=== PATIENT | male | born 1975 | race Caucasian/White ===

== ENCOUNTER 2017-10-08 16:01 | Inpatient (IN) | payer MEDICAID, OTHER ==
[~2017-10-08] VITALS: Ht 167.6 cm; Wt 96.3 kg
[~2017-10-08 16:01] MED LIST: AMLO10TA2 PO; AMOX1TAB61 PO; CARV25TA12 PO; CLON0.1T PO; FURO20TA3 PO; HYDR100T25 PO; ISOS60TA PO; LISI40TA PO; OXYC-302 PO; PANT40TA3 PO; POTA20TA91 PO; SIMV40TA3 PO; SPIR25TA3 PO; SUCR1TAB33 PO; ZOLP-413 PO
[2017-10-08] MEDS ORDERED: SODIUM CHLORIDE FLUSH 10ML SYR IVF ONE (16:30)
[2017-10-08 16:50] LABS: BASOPHILS # (AUTO) 0.04 x10^3/uL (0-0.1); BASOPHILS % (AUTO) 1 % (0-1); EOSINOPHILS # (AUTO) 0.12 x10^3/uL (0-0.4); EOSINOPHILS % (AUTO) 1 % (1-7); LYMPHOCYTES # (AUTO) 1.47 x10^3/uL (1-3.4); LYMPHOCYTES % (AUTO) 15 % (22-44); MD NO; MEAN CORPUSCULAR HEMOGLOBIN 26.2 pg (27.5-34.5); MEAN CORPUSCULAR HGB CONC 32.3 g/dL (33.2-36.2); MEAN CORPUSCULAR VOLUME 81.3 fL (81-97); MONOCYTES # (AUTO) 0.58 x10^3/uL (0.2-0.8); MONOCYTES % (AUTO) 6 % (2-9); NEUTROPHILS % (AUTO) 77 % (42-75); PLATELET COUNT 232 x10^3/uL (130-400); RED BLOOD COUNT 5.49 x10^6/uL (4.38-5.82); RED CELL DISTRIBUTION WIDTH 15.3 % (9.4-14.8)
[2017-10-08] MEDS ORDERED: HYDR25TA6 PO (16:53)
[2017-10-08 16:59] LABS: ANION GAP 7 mmol/L (5-15); CALCIUM 8.9 mg/dL (8.5-10.1); CHLORIDE 106 mmol/L (98-107)
[2017-10-08 17:01] LABS: INTERNATIONAL NORMALIZED RATIO 1.14 (0.93-1.1); PROTHROMBIN TIME 11.8 Seconds (9.6-11.5)
[2017-10-08 17:04] LABS: ALANINE AMINOTRANSFERASE 27 U/L (12-78); ALKALINE PHOSPHATASE 65 U/L (45-117); BILIRUBIN,TOTAL 0.9 mg/dL (0.2-1.0); CREATININE 1.45 mg/dL (0.7-1.3); TOTAL PROTEIN 7.8 g/dL (6.4-8.2); TROPONIN I 0.027 ng/mL (0.000-0.045)
[2017-10-08] MEDS ORDERED: OMNIPAQUE 350 MG/ML, 100ML BOTTLE ONE (17:41)
[2017-10-08] MEDS ORDERED: SODIUM CHLORIDE FLUSH 10ML SYR IVF PRN (18:30)
[2017-10-08] MEDS ORDERED: ACETAMINOPHEN 650 MG/20.3 ML UDC PO PRN (20:00)
[2017-10-08] MEDS ORDERED: DOCUSATE 100 MG CAPSULE PO PRN (20:00)
[2017-10-08] MEDS ORDERED: POLYETHYLENE GLYCOL 17 GM PACKET PO PRN (20:00)
[2017-10-08] MEDS ORDERED: ONDANSETRON 4 MG TABLET PO PRN (20:00)
[2017-10-08] MEDS ORDERED: INSTRUCTION SEE COMMENTS XX ONE (20:00)
[2017-10-08] MEDS ORDERED: OXYcodone/APAP 5/325MG TABLET PO PRN (20:00)
[2017-10-08] MEDS ORDERED: PROMETHAZINE 25 MG/ML, 1ML IM PRN (20:00)
[2017-10-08] MEDS ORDERED: morphine SULFATE 10 MG/ML, 1ML IVPush PRN (20:00)
[2017-10-08] MEDS ORDERED: ONDANSETRON 2MG/ML, 2ML IVPush PRN (20:00)
[2017-10-08] MEDS ORDERED: SENNA/DOCUSATE TABLET PO PRN (20:00)
[2017-10-08 20:45] LABS: HEMOGLOBIN A1C 5.4 % (4.2-6.3)
[2017-10-08 20:54] VITALS: BP 150/87
[2017-10-08 20:57] LABS: FREE T4 (FREE THYROXINE) 1.16 ng/dL (0.76-1.46); THYROID STIMULATING HORMONE 0.721 mIU/L (0.358-3.740)
[2017-10-08] MEDS ORDERED: POTASSIUM CHLORIDE 40 MEQ in SODIUM CHLORIDE 0.9% 500 ML IV ONE (21:00)
[2017-10-08] MEDS ORDERED: ATORVASTATIN 40 MG TABLET PO SCH (21:00)
[2017-10-08] MEDS: CARVEDILOL 25 MG TABLET PO SCH (21:22)
[2017-10-09 04:35] VITALS: BP 152/84
[2017-10-09 04:37] LABS: BASOPHILS # (AUTO) 0.02 x10^3/uL (0-0.1); BASOPHILS % (AUTO) 0 % (0-1); EOSINOPHILS % (AUTO) 3 % (1-7); LYMPHOCYTES % (AUTO) 19 % (22-44); MD NO; MEAN CORPUSCULAR HEMOGLOBIN 26.7 pg (27.5-34.5); MEAN CORPUSCULAR HGB CONC 32.1 g/dL (33.2-36.2); MEAN CORPUSCULAR VOLUME 83.3 fL (81-97); MEAN PLATELET VOLUME 9.2 fL (7.4-10.4); MONOCYTES # (AUTO) 0.71 x10^3/uL (0.2-0.8); MONOCYTES % (AUTO) 8 % (2-9); NEUTROPHILS % (AUTO) 70 % (42-75); PLATELET COUNT 233 x10^3/uL (130-400); RED BLOOD COUNT 4.98 x10^6/uL (4.38-5.82); RED CELL DISTRIBUTION WIDTH 15.3 % (9.4-14.8)
[2017-10-09 04:39] LABS: ALBUMIN 3.5 g/dL (3.4-5.0); ANION GAP 7 mmol/L (5-15); CALCIUM 8.4 mg/dL (8.5-10.1); CHLORIDE 108 mmol/L (98-107)
[2017-10-09 04:44] LABS: ALANINE AMINOTRANSFERASE 20 U/L (12-78); ALKALINE PHOSPHATASE 60 U/L (45-117); BILIRUBIN,TOTAL 0.8 mg/dL (0.2-1.0); CHOL/HDL RATIO 5.6; CHOLESTEROL, TOTAL 157 mg/dL (140-239); CREATININE 1.47 mg/dL (0.7-1.3); HDL CHOL % 18 % (26-37); HDL CHOLESTEROL (DIRECT) 28 mg/dL (40-60); LDL CHOLESTEROL,CALCULATED 95 mg/dL (54-169); LDL/HDL RATIO 3.4 (0.5-3.0); TOTAL PROTEIN 6.8 g/dL (6.4-8.2); TRIGLYCERIDES 168 mg/dL (50-200); VLDL CHOLESTEROL 34 mg/dL (0-25)
[2017-10-09] MEDS: CARVEDILOL 25 MG TABLET PO SCH ×2 (06:23→18:00)
[2017-10-09] MEDS ORDERED: ERGOCALCIFEROL 50,000 UNIT CAPSULE PO SCH (07:30)
[2017-10-09] MEDS ORDERED: POTASSIUM CHLORIDE 20 MEQ TAB.ER.PRT PO ONE (08:30)
[2017-10-09] MEDS: ISOSORBIDE MONONITRATE ER 60 MG TABLET PO SCH (09:27)
[2017-10-09] MEDS: HYDROCHLOROTHIAZIDE 25 MG TABLET PO SCH (09:27)
[2017-10-09 13:13] LABS: AMPHETAMINE SCREEN, URINE Negative (Negative); BARBITURATE SCREEN, URINE Negative (Negative); BENZODIAZEPINE SCREEN, URINE Negative (Negative); CANNABINOID SCREEN, URINE Negative (Negative); COCAINE SCREEN, URINE Negative (Negative); METHADONE SCREEN, URINE Negative (Negative); OPIATE SCREEN, URINE Negative (Negative)
[2017-10-09 16:15] VITALS: BP 159/92
[2017-10-09 21:19] VITALS: BP 164/90
[2017-10-09] MEDS: ATORVASTATIN 40 MG TABLET PO SCH (21:20)
[2017-10-09 21:51] VITALS: BP 161/64
[2017-10-10] VITALS (18 sets, daily range): BP systolic 137–210; BP diastolic 77–126
[2017-10-10] MEDS ORDERED: hydrALAzine 20 MG/ML, 1ML IV PRN ×2 (00:30→18:30)
[2017-10-10] MEDS: ENALAPRILAT 1.25 MG/ML, 2ML IV PRN ×3 (00:47→22:58)
[2017-10-10 05:16] LABS: ANION GAP 6 mmol/L (5-15); CALCIUM 8.2 mg/dL (8.5-10.1); CHLORIDE 106 mmol/L (98-107)
[2017-10-10 05:19] LABS: CREATININE 1.48 mg/dL (0.7-1.3)
[2017-10-10] MEDS: CARVEDILOL 25 MG TABLET PO SCH ×2 (05:32→18:30)
[2017-10-10] MEDS: ISOSORBIDE MONONITRATE ER 60 MG TABLET PO SCH (09:26)
[2017-10-10] MEDS: HYDROCHLOROTHIAZIDE 25 MG TABLET PO SCH (09:26)
[2017-10-10] MEDS: AMLODIPINE 5 MG TABLET PO SCH ×2 (14:53→20:24)
[2017-10-10] MEDS ORDERED: LORazepam 2 MG/ML, 1ML IVPush PRN ×2 (17:30→18:00)
[2017-10-10] MEDS ORDERED: hydrALAzine 20 MG/ML, 1ML IV ONE ×2 (17:30→18:00)
[2017-10-10] MEDS ORDERED: LABETALOL 5MG/ML, 20ML IVPush PRN ×2 (18:30)
[2017-10-10] MEDS ORDERED: ENALAPRILAT 1.25 MG/ML, 2ML IV PRN (19:00)
[2017-10-10] MEDS: ATORVASTATIN 40 MG TABLET PO SCH (20:24)
[2017-10-11] VITALS (15 sets, daily range): BP systolic 126–184; BP diastolic 75–114
[2017-10-11 05:24] LABS: ALANINE AMINOTRANSFERASE 17 U/L (12-78); ALBUMIN 3.4 g/dL (3.4-5.0); ANION GAP 7 mmol/L (5-15); CALCIUM 8.8 mg/dL (8.5-10.1); CHLORIDE 104 mmol/L (98-107); CREATININE 1.48 mg/dL (0.7-1.3)
[2017-10-11 05:26] LABS: ALKALINE PHOSPHATASE 58 U/L (45-117); BILIRUBIN,TOTAL 0.9 mg/dL (0.2-1.0); TOTAL PROTEIN 7.2 g/dL (6.4-8.2)
[2017-10-11] MEDS: CARVEDILOL 25 MG TABLET PO SCH ×2 (05:44→17:49)
[2017-10-11 05:47] LABS: BASOPHILS # (AUTO) 0.05 x10^3/uL (0-0.1); BASOPHILS % (AUTO) 1 % (0-1); EOSINOPHILS # (AUTO) 0.44 x10^3/uL (0-0.4); EOSINOPHILS % (AUTO) 4 % (1-7); LYMPHOCYTES # (AUTO) 1.61 x10^3/uL (1-3.4); LYMPHOCYTES % (AUTO) 16 % (22-44); MD NO; MEAN CORPUSCULAR HEMOGLOBIN 26.8 pg (27.5-34.5); MEAN CORPUSCULAR HGB CONC 32.7 g/dL (33.2-36.2); MEAN CORPUSCULAR VOLUME 82.1 fL (81-97); MONOCYTES # (AUTO) 0.95 x10^3/uL (0.2-0.8); MONOCYTES % (AUTO) 9 % (2-9); NEUTROPHILS # (AUTO) 7.22 x10^3/uL (1.8-6.8); NEUTROPHILS % (AUTO) 70 % (42-75); PLATELET COUNT 227 x10^3/uL (130-400); RED BLOOD COUNT 5.06 x10^6/uL (4.38-5.82); RED CELL DISTRIBUTION WIDTH 15.1 % (9.4-14.8)
[2017-10-11] MEDS ORDERED: POTASSIUM CHLORIDE 20 MEQ TAB.ER.PRT PO ONE ×2 (08:30→11:30)
[2017-10-11] MEDS: ENALAPRILAT 1.25 MG/ML, 2ML IV PRN ×2 (08:59→17:49)
[2017-10-11] MEDS ORDERED: CHLORTHALIDONE 25 MG TABLET PO SCH (09:00)
[2017-10-11] MEDS ORDERED: LISINOPRIL 20 MG TABLET PO ONE (09:30)
[2017-10-11] MEDS ORDERED: ONDANSETRON 2MG/ML, 2ML ONE (09:47)
[2017-10-11] MEDS ORDERED: PROPOFOL 10 MG/ML, 20ML ONE (09:47)
[2017-10-11] MEDS ORDERED: DEXAMETHASONE 4 MG/ML, 1ML ONE (09:47)
[2017-10-11] MEDS ORDERED: MIDAZOLAM 1 MG/ML, 2ML ONE (09:48)
[2017-10-11] MEDS ORDERED: FENTANYL PF 100 MCG/2ML ONE (09:48)
[2017-10-11] MEDS ORDERED: OXYcodone 5 MG/5 ML ORAL.SOL UDC ONE (11:19)
[2017-10-11] MEDS ORDERED: OXYcodone 5 MG/5 ML ORAL.SOL UDC PO PRN (11:30)
[2017-10-11] MEDS ORDERED: MEPERIDINE/PF 25MG/0.5ML IVPush PRN (11:30)
[2017-10-11] MEDS ORDERED: MIDAZOLAM 1 MG/ML, 2ML IV PRN (11:30)
[2017-10-11] MEDS ORDERED: EPHEDRINE 50 MG/ML, 1ML IVPush PRN (11:30)
[2017-10-11] MEDS ORDERED: ONDANSETRON ODT 8 MG PO PRN (11:30)
[2017-10-11] MEDS ORDERED: PROMETHAZINE 25 MG/ML, 1ML IV PRN (11:30)
[2017-10-11] MEDS ORDERED: LABETALOL 5MG/ML, 20ML IV PRN (11:30)
[2017-10-11] MEDS ORDERED: FENTANYL PF 100 MCG/2ML IV PRN (11:30)
[2017-10-11] MEDS ORDERED: hydrALAzine 20 MG/ML, 1ML IV PRN (11:30)
[2017-10-11] MEDS ORDERED: HYDROcodone/APAP 7.5-325MG/15ML UDC PO PRN (11:30)
[2017-10-11] MEDS ORDERED: ALBUTEROL SULFATE 2.5 MG/3 ML NPPB PRN (11:30)
[2017-10-11] MEDS ORDERED: ACETAMINOPHEN 325 MG TABLET PO PRN (11:30)
[2017-10-11] MEDS ORDERED: HYDROmorphone 1 MG/ML, 1ML IV PRN (11:30)
[2017-10-11] MEDS: AMLODIPINE 5 MG TABLET PO SCH ×2 (13:24→20:21)
[2017-10-11] MEDS: LISINOPRIL 20 MG TABLET PO SCH ×2 (13:24→20:21)
[2017-10-11] MEDS: FUROSEMIDE 40 MG TABLET PO SCH (13:25)
[2017-10-11] MEDS ORDERED: OMNIPAQUE 350 MG/ML, 50 ML BOTTLE ONE (15:47)
[2017-10-11] MEDS: ATORVASTATIN 40 MG TABLET PO SCH (20:21)
[2017-10-12] VITALS (10 sets, daily range): BP systolic 105–167; BP diastolic 63–107
[2017-10-12] MEDS: CARVEDILOL 25 MG TABLET PO SCH ×2 (06:07→17:51)
[2017-10-12 08:09] LABS: MEAN CORPUSCULAR HEMOGLOBIN 26.3 pg (27.5-34.5); MEAN CORPUSCULAR HGB CONC 32.2 g/dL (33.2-36.2); MEAN CORPUSCULAR VOLUME 81.7 fL (81-97); PLATELET COUNT 229 x10^3/uL (130-400); RED BLOOD COUNT 5.17 x10^6/uL (4.38-5.82); RED CELL DISTRIBUTION WIDTH 15.1 % (9.4-14.8)
[2017-10-12 08:22] LABS: ALBUMIN 3.3 g/dL (3.4-5.0); ANION GAP 7 mmol/L (5-15); CALCIUM 8.5 mg/dL (8.5-10.1); CHLORIDE 106 mmol/L (98-107); CREATININE 1.54 mg/dL (0.7-1.3)
[2017-10-12] MEDS ORDERED: PHENAZOPYRIDINE 100 MG TABLET PO PRN (08:30)
[2017-10-12 08:32] LABS: BASOPHILS # (AUTO) 0.04 x10^3/uL (0-0.1); BASOPHILS % (AUTO) 0 % (0-1); EOSINOPHILS # (AUTO) 0.08 x10^3/uL (0-0.4); EOSINOPHILS % (AUTO) 1 % (1-7); LYMPHOCYTES % (AUTO) 11 % (22-44); MD SCAN; MONOCYTES # (AUTO) 0.85 x10^3/uL (0.2-0.8); MONOCYTES % (AUTO) 6 % (2-9); NEUTROPHILS # (AUTO) 11.02 x10^3/uL (1.8-6.8); NEUTROPHILS % (AUTO) 82 % (42-75)
[2017-10-12] MEDS: LISINOPRIL 20 MG TABLET PO SCH ×2 (10:03→20:08)
[2017-10-12] MEDS: FUROSEMIDE 40 MG TABLET PO SCH (10:03)
[2017-10-12] MEDS: AMLODIPINE 5 MG TABLET PO SCH ×2 (10:04→20:07)
[2017-10-12] MEDS: PHENAZOPYRIDINE 100 MG TABLET PO SCH ×2 (16:00→21:00)
[2017-10-12 16:33] LABS: MICROSCOPIC INDICATED
[2017-10-12 16:41] LABS: CULTURE INDICATED? YES
[2017-10-12] MEDS: ATORVASTATIN 40 MG TABLET PO SCH (20:08)
[2017-10-12] MEDS: ENALAPRILAT 1.25 MG/ML, 2ML IV PRN (21:14)
[2017-10-13] VITALS (9 sets, daily range): BP systolic 138–187; BP diastolic 89–111
[2017-10-13] MEDS: CARVEDILOL 25 MG TABLET PO SCH ×2 (05:12→18:05)
[2017-10-13 05:38] LABS: BASOPHILS # (AUTO) 0.03 x10^3/uL (0-0.1); BASOPHILS % (AUTO) 0 % (0-1); EOSINOPHILS # (AUTO) 0.41 x10^3/uL (0-0.4); EOSINOPHILS % (AUTO) 4 % (1-7); LYMPHOCYTES # (AUTO) 2.02 x10^3/uL (1-3.4); LYMPHOCYTES % (AUTO) 19 % (22-44); MD NO; MEAN CORPUSCULAR HEMOGLOBIN 26.9 pg (27.5-34.5); MEAN CORPUSCULAR HGB CONC 32.4 g/dL (33.2-36.2); MEAN CORPUSCULAR VOLUME 83.1 fL (81-97); MEAN PLATELET VOLUME 9.2 fL (7.4-10.4); MONOCYTES # (AUTO) 0.82 x10^3/uL (0.2-0.8); MONOCYTES % (AUTO) 8 % (2-9); NEUTROPHILS # (AUTO) 7.67 x10^3/uL (1.8-6.8); NEUTROPHILS % (AUTO) 70 % (42-75); PLATELET COUNT 238 x10^3/uL (130-400); RED BLOOD COUNT 5.19 x10^6/uL (4.38-5.82); RED CELL DISTRIBUTION WIDTH 14.8 % (9.4-14.8)
[2017-10-13 05:47] LABS: ALBUMIN 3.4 g/dL (3.4-5.0); ANION GAP 7 mmol/L (5-15); CALCIUM 8.5 mg/dL (8.5-10.1); CHLORIDE 106 mmol/L (98-107)
[2017-10-13 05:51] LABS: ALANINE AMINOTRANSFERASE 14 U/L (12-78); ALKALINE PHOSPHATASE 55 U/L (45-117); BILIRUBIN,TOTAL 0.7 mg/dL (0.2-1.0); CREATININE 1.57 mg/dL (0.7-1.3); TOTAL PROTEIN 7.1 g/dL (6.4-8.2)
[2017-10-13] MEDS ORDERED: POTASSIUM CHLORIDE 20 MEQ TAB.ER.PRT PO ONE ×2 (07:30→11:00)
[2017-10-13] MEDS: LISINOPRIL 20 MG TABLET PO SCH ×2 (08:09→20:47)
[2017-10-13] MEDS: FUROSEMIDE 40 MG TABLET PO SCH (08:09)
[2017-10-13] MEDS: PHENAZOPYRIDINE 100 MG TABLET PO SCH ×3 (08:10→20:47)
[2017-10-13] MEDS: AMLODIPINE 5 MG TABLET PO SCH ×2 (08:10→20:48)
[2017-10-13] MEDS ORDERED: LISINOPRIL 10 MG TABLET PO SCH (09:00)
[2017-10-13] MEDS ORDERED: OMNIPAQUE 350 MG/ML, 100ML BOTTLE ONE (11:58)
[2017-10-13] MEDS: ENALAPRILAT 1.25 MG/ML, 2ML IV PRN (14:15)
[2017-10-13] MEDS ORDERED: CLON0.2T10 PO (15:28)
[2017-10-13] MEDS ORDERED: AMLO5TAB2 PO (15:28)
[2017-10-13] MEDS ORDERED: ERGO500017 PO (15:28)
[2017-10-13] MEDS ORDERED: LISI-170 PO (15:28)
[2017-10-13] MEDS ORDERED: ATOR40TA78 PO (15:28)
[2017-10-13] MEDS ORDERED: FURO40TA6 PO (15:28)
[2017-10-13] MEDS: ATORVASTATIN 40 MG TABLET PO SCH (20:48)
[2017-10-14] VITALS (9 sets, daily range): BP systolic 121–170; BP diastolic 75–106
[2017-10-14 05:25] LABS: BASOPHILS # (AUTO) 0.04 x10^3/uL (0-0.1); BASOPHILS % (AUTO) 0 % (0-1); EOSINOPHILS # (AUTO) 0.42 x10^3/uL (0-0.4); EOSINOPHILS % (AUTO) 4 % (1-7); LYMPHOCYTES # (AUTO) 2.29 x10^3/uL (1-3.4); LYMPHOCYTES % (AUTO) 22 % (22-44); MD NO; MEAN CORPUSCULAR HEMOGLOBIN 26.6 pg (27.5-34.5); MEAN CORPUSCULAR HGB CONC 32.5 g/dL (33.2-36.2); MEAN CORPUSCULAR VOLUME 81.9 fL (81-97); MEAN PLATELET VOLUME 9.1 fL (7.4-10.4); MONOCYTES # (AUTO) 0.94 x10^3/uL (0.2-0.8); MONOCYTES % (AUTO) 9 % (2-9); NEUTROPHILS # (AUTO) 6.66 x10^3/uL (1.8-6.8); NEUTROPHILS % (AUTO) 64 % (42-75); PLATELET COUNT 243 x10^3/uL (130-400); RED BLOOD COUNT 5.23 x10^6/uL (4.38-5.82); RED CELL DISTRIBUTION WIDTH 15.1 % (9.4-14.8)
[2017-10-14 05:35] LABS: ALBUMIN 3.3 g/dL (3.4-5.0); ANION GAP 8 mmol/L (5-15); CALCIUM 8.6 mg/dL (8.5-10.1); CHLORIDE 107 mmol/L (98-107)
[2017-10-14] MEDS: CARVEDILOL 25 MG TABLET PO SCH ×2 (05:37→18:21)
[2017-10-14] MEDS ORDERED: HYDR100T25 PO (07:04)
[2017-10-14] MEDS: FUROSEMIDE 40 MG TABLET PO SCH (08:52)
[2017-10-14] MEDS: PHENAZOPYRIDINE 100 MG TABLET PO SCH ×3 (08:52→21:00)
[2017-10-14] MEDS: AMLODIPINE 5 MG TABLET PO SCH ×2 (08:52→21:01)
[2017-10-14] MEDS: LISINOPRIL 20 MG TABLET PO SCH ×2 (08:52→21:01)
[2017-10-14] MEDS: ENALAPRILAT 1.25 MG/ML, 2ML IV PRN (13:32)
[2017-10-14] MEDS: ATORVASTATIN 40 MG TABLET PO SCH (21:00)
[2017-10-15 03:13] VITALS: BP_SYST 149; BP_SYST 162; BP_DIAS 84; BP_DIAS 98
[2017-10-15 03:37] VITALS: BP 144/84
[2017-10-15 03:39] VITALS: BP 133/79
[2017-10-15] MEDS: CARVEDILOL 25 MG TABLET PO SCH (05:26)
[2017-10-15 07:25] VITALS: BP 124/83
[2017-10-15 08:20] VITALS: BP 148/90
[2017-10-15] MEDS: PHENAZOPYRIDINE 100 MG TABLET PO SCH (08:22)
[2017-10-15] MEDS: AMLODIPINE 5 MG TABLET PO SCH (08:22)
[2017-10-15] MEDS: FUROSEMIDE 40 MG TABLET PO SCH (08:22)
[2017-10-15] MEDS: LISINOPRIL 20 MG TABLET PO SCH (08:22)
[2017-10-15 11:49] VITALS: BP 157/94
== END 2017-10-15 13:20 | disposition home or self-care (01) | DRG 987 ==
LOC: ED 16:45 → EDIP 18:20 → CCU 20:45 → 4WST 10-09 15:55 → DCLOUNGE 10-15 13:07
PROVIDERS: ADMIT Internal Medicine; ATTEND Internal Medicine
PROC: 0T778DZ Dilation of Left Ureter with Intraluminal Device, Via Natural or Artificial Opening Endoscopic (ICD-10-PCS; 2017-10-11)
PROC: 0TC78ZZ Extirpation of Matter from Left Ureter, Via Natural or Artificial Opening Endoscopic (ICD-10-PCS; principal; 2017-10-11 09:45)
DX: I61.9 Nontraumatic intracerebral hemorrhage, unspecified (principal); I50.43 Acute on chronic combined systolic (congestive) and diastolic (congestive) heart failure; I63.9 Cerebral infarction, unspecified; N13.2 Hydronephrosis with renal and ureteral calculous obstruction; I13.0 Hypertensive heart and chronic kidney disease with heart failure and stage 1 through stage 4 chronic kidney disease, or unspecified chronic kidney disease; I16.1 Hypertensive emergency; G81.91 Hemiplegia, unspecified affecting right dominant side; N17.9 Acute kidney failure, unspecified; E55.9 Vitamin D deficiency, unspecified; E78.5 Hyperlipidemia, unspecified; E87.6 Hypokalemia; K21.9 Gastro-esophageal reflux disease without esophagitis; N18.9 Chronic kidney disease, unspecified; R29.810 Facial weakness; Z79.899 Other long term (current) drug therapy; Z82.49 Family history of ischemic heart disease and other diseases of the circulatory system; Z87.442 Personal history of urinary calculi
CPT/HCPCS: 36415; 70450; 70470; 71045; 71275; 74176; 74420; 76770; 80048; 80053; 80061; 80307; 81001; 82040; 82088; 82306; 82360; 82607; 83036; 83735; 83970; 84100; 84244; 84439; 84443; 84484; 85025; 85610; 85730; 87081; 87086; 88300; 93005; 93306; 93880; 93975; 96374; J1100; J2250; J2405; J2704; J3010; J3480; Q9967; C1758; C1769; C2617; J0360; J2060; J7040; J7050

== ENCOUNTER 2018-01-19 10:50 | Emergency (ER) | payer MEDICAID, OTHER ==
[~2018-01-19] VITALS: Ht 167.6 cm; Wt 97.0 kg
[~2018-01-19 10:50] MED LIST changes: -AMLO10TA2 PO; +AMLO10TA6 PO; +AMLO5TAB7 PO; +ATOR40TA78 PO; +CLON0.2T10 PO; +ERGO500017 PO; +FURO40TA6 PO; +HYDR25TA6 PO; +LISI-170 PO; -SPIR25TA3 PO; +SPIR25TA5 PO
[2018-01-19] MEDS ORDERED: LORazepam 0.5MG TABLET PO ONE (11:30)
[2018-01-19] MEDS ORDERED: LORazepam 1MG TABLET ONE (11:34)
[2018-01-19 13:16] VITALS: BP 160/84
== END 2018-01-19 13:26 | disposition home or self-care (01) ==
LOC: ED 13:00
DX: F43.0 Acute stress reaction (principal); F41.9 Anxiety disorder, unspecified; I10 Essential (primary) hypertension; Z86.73 Personal history of transient ischemic attack (TIA), and cerebral infarction without residual deficits; Z88.8 Allergy status to other drugs, medicaments and biological substances
CPT/HCPCS: 99284

== ENCOUNTER 2020-06-13 12:54 | Inpatient (IN) | payer OTHER ==
[~2020-06-13] VITALS: Ht 165.1 cm; Wt 114.7 kg
[~2020-06-13 12:54] MED LIST changes: +AMLO-150 PO; +AMLO-211 PO; -AMLO10TA6 PO; -AMLO5TAB7 PO; -CLON0.1T PO; +CLON0.1T22 PO; -LISI40TA PO; +LISI40TA9 PO; -OXYC-302 PO; +OXYC1TAB14 PO; +SIMV40TA20 PO; -SIMV40TA3 PO
--- NOTE | 2020-06-13 13:03 | NUR ---
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 EKG IN TRIAGE.
[2020-06-13] MEDS ORDERED: SODIUM CHLORIDE FLUSH 10ML SYR IVF ONE (14:00)
[2020-06-13 14:05] LABS: BASOPHILS % (AUTO) 1 % (0-1); EOSINOPHILS % (AUTO) 3 % (1-7); LYMPHOCYTES % (AUTO) 20 % (22-44); MEAN CORPUSCULAR HEMOGLOBIN 26.2 pg (27.5-34.5); MEAN CORPUSCULAR HGB CONC 31.8 g/dL (33.2-36.2); MEAN PLATELET VOLUME 8.7 fL (7.4-10.4); MONOCYTES % (AUTO) 15 % (2-9); NEUTROPHILS % (AUTO) 61 % (42-75); PLATELET COUNT 211 x10^3/uL (130-400); RED BLOOD COUNT 6.75 x10^6/uL (4.38-5.82); RED CELL DISTRIBUTION WIDTH 16.8 % (9.4-14.8)
[2020-06-13 14:07] LABS: MD NO
[2020-06-13 14:13] LABS: ALBUMIN 3.7 g/dL (3.4-5.0); ANION GAP 5 mmol/L (5-15); CALCIUM 8.4 mg/dL (8.5-10.1); CHLORIDE 107 mmol/L (98-107); CREATININE 1.29 mg/dL (0.7-1.3)
[2020-06-13 14:14] LABS: INTERNATIONAL NORMALIZED RATIO 1.17 (0.93-1.1); PROTHROMBIN TIME 12.5 Seconds (9.6-11.5)
[2020-06-13 14:17] LABS: TROPONIN I < 0.015 ng/mL (0.000-0.045)
--- NOTE | 2020-06-13 14:47 | NUR ---
pt in bed with no signs or symptoms of acute distress noted respirations even and unlabored, on shelter monitor satting well on nc with o2 at 2l/min. us at bedside for imaging.
--- NOTE | 2020-06-13 15:17 | NUR ---
pt in bed with no signs or symptoms of acute dsitress noted respiraitons even and unlabored denies pain or discomfort. in bed with quality assurance monitor chassis in place, satting well on nc with 02 at 2l/min, bed rails up bilaterally and call light within reach. family member at bedside.
--- NOTE | 2020-06-13 15:44 | NUR ---
this rn ambulated with pt on room air with pulse oximeter, pt denies dizziness, pain or shortness of breath while walking, ambulated with steady gait and good balanbce. pt noted to steadily decrease from 96-91% with ambulation, pt brought back to bed and placed back on lunchroom monitor, noted to be 75% on room air with a good pleath to monitor. pt placed back on oxygen at 3l/min via nasal cannula, with a few deep breaths with o2 pt able to get spo2 at 91%. pt continues to deny pain or discomfort denies need or questions at this time. pt in bed with bed rails up bilaterally and call light within reach, family member at bedside.
--- NOTE | 2020-06-13 16:54 | NUR ---
pt updated on plan of care, verbalizes understanding and agreement. pt states he will have family member bring home meds to bedside for med rec. 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
--- NOTE | 2020-06-13 18:05 | NUR ---
TASK RN: Pt hypertensive, reports he normally takes BP meds (unable to specify what) and that they are past due. Pt denies needs at this time.
[2020-06-13] MEDS ORDERED: ACETAMINOPHEN 325 MG TABLET PO PRN (18:30)
[2020-06-13] MEDS ORDERED: POLYETHYLENE GLYCOL 17 GM PACKET PO PRN (18:30)
[2020-06-13] MEDS ORDERED: ONDANSETRON ODT 4 MG PO PRN (18:30)
[2020-06-13] MEDS ORDERED: BISACODYL 10 MG SUPP PR PRN (18:30)
[2020-06-13] MEDS ORDERED: ERGOCALCIFEROL 50,000 UNIT CAPSULE PO SCH (18:30)
[2020-06-13 19:45] VITALS: BP 164/97
[2020-06-13] MEDS: LISINOPRIL 20 MG TABLET PO SCH (19:58)
[2020-06-13] MEDS: AMLODIPINE 5 MG TABLET PO SCH (19:59)
[2020-06-13] MEDS: HEPARIN 5,000 UNITS/ML, 1ML SQ SCH (19:59)
[2020-06-13] MEDS: ATORVASTATIN 40 MG TABLET PO SCH (19:59)
[2020-06-13] MEDS: SODIUM CHLORIDE FLUSH 10ML SYR IVF SCH (19:59)
[2020-06-13] MEDS: CARVEDILOL 25 MG TABLET PO SCH (20:01)
[2020-06-13 20:08] VITALS: BP 164/97
[2020-06-14] VITALS (8 sets, daily range): BP systolic 129–160; BP diastolic 77–103
[2020-06-14] MEDS: HEPARIN 5,000 UNITS/ML, 1ML SQ SCH ×3 (05:08→20:57)
[2020-06-14] MEDS: CARVEDILOL 25 MG TABLET PO SCH ×2 (05:08→17:07)
[2020-06-14 05:51] LABS: BASOPHILS % (AUTO) 1 % (0-1); EOSINOPHILS % (AUTO) 3 % (1-7); LYMPHOCYTES % (AUTO) 23 % (22-44); MEAN CORPUSCULAR HEMOGLOBIN 26.3 pg (27.5-34.5); MEAN CORPUSCULAR HGB CONC 31.6 g/dL (33.2-36.2); MEAN PLATELET VOLUME 9.2 fL (7.4-10.4); MONOCYTES % (AUTO) 10 % (2-9); NEUTROPHILS % (AUTO) 63 % (42-75); PLATELET COUNT 213 x10^3/uL (130-400); RED CELL DISTRIBUTION WIDTH 16.9 % (9.4-14.8)
[2020-06-14 05:52] LABS: MD NO
[2020-06-14 06:08] LABS: TROPONIN I 0.024 ng/mL (0.000-0.045)
[2020-06-14] MEDS: AMLODIPINE 5 MG TABLET PO SCH ×2 (08:18→20:56)
[2020-06-14] MEDS: SENNA/DOCUSATE TABLET PO SCH ×2 (08:18→08:20)
[2020-06-14] MEDS: LISINOPRIL 20 MG TABLET PO SCH ×2 (08:18→20:56)
[2020-06-14] MEDS: SODIUM CHLORIDE FLUSH 10ML SYR IVF SCH ×2 (08:18→20:57)
[2020-06-14 11:52] LABS: TROPONIN I 0.018 ng/mL (0.000-0.045)
[2020-06-14] MEDS: ATORVASTATIN 40 MG TABLET PO SCH (20:56)
[2020-06-15] VITALS (7 sets, daily range): BP systolic 145–171; BP diastolic 84–107
[2020-06-15] MEDS: CARVEDILOL 25 MG TABLET PO SCH ×2 (05:03→16:57)
[2020-06-15] MEDS: HEPARIN 5,000 UNITS/ML, 1ML SQ SCH ×3 (05:03→20:17)
[2020-06-15] MEDS: LISINOPRIL 20 MG TABLET PO SCH ×2 (07:48→20:17)
[2020-06-15] MEDS: AMLODIPINE 5 MG TABLET PO SCH ×2 (07:48→20:17)
[2020-06-15] MEDS: SENNA/DOCUSATE TABLET PO SCH (07:49)
[2020-06-15] MEDS: SODIUM CHLORIDE FLUSH 10ML SYR IVF SCH ×2 (07:49→20:17)
[2020-06-15] MEDS ORDERED: OMNIPAQUE 350 MG/ML, 75ML BOTTLE ONE (12:50)
[2020-06-15] MEDS: ATORVASTATIN 40 MG TABLET PO SCH (20:17)
[2020-06-16] VITALS (8 sets, daily range): BP systolic 116–169; BP diastolic 64–112
[2020-06-16] MEDS: CARVEDILOL 25 MG TABLET PO SCH ×2 (04:56→17:45)
[2020-06-16] MEDS: HEPARIN 5,000 UNITS/ML, 1ML SQ SCH ×3 (04:56→21:38)
[2020-06-16] MEDS: AMLODIPINE 5 MG TABLET PO SCH (07:46)
[2020-06-16] MEDS: SODIUM CHLORIDE FLUSH 10ML SYR IVF SCH ×2 (07:46→21:38)
[2020-06-16] MEDS: SENNA/DOCUSATE TABLET PO SCH (07:46)
[2020-06-16] MEDS: LISINOPRIL 20 MG TABLET PO SCH ×2 (07:46→21:39)
[2020-06-16] MEDS ORDERED: niFEDipine ER 60 MG TABLET.ER PO SCH (10:30)
[2020-06-16] MEDS: ATORVASTATIN 40 MG TABLET PO SCH (21:38)
[2020-06-17] VITALS (7 sets, daily range): BP systolic 112–166; BP diastolic 67–118
[2020-06-17 05:20] LABS: ANION GAP 3 mmol/L (5-15); CALCIUM 8.4 mg/dL (8.5-10.1); CHLORIDE 104 mmol/L (98-107); CREATININE 0.99 mg/dL (0.7-1.3)
[2020-06-17 05:24] LABS: BASOPHILS % (AUTO) 1 % (0-1); EOSINOPHILS % (AUTO) 3 % (1-7); LYMPHOCYTES % (AUTO) 15 % (22-44); MEAN CORPUSCULAR HEMOGLOBIN 26.6 pg (27.5-34.5); MEAN CORPUSCULAR HGB CONC 32.5 g/dL (33.2-36.2); MEAN PLATELET VOLUME 8.8 fL (7.4-10.4); MONOCYTES % (AUTO) 11 % (2-9); NEUTROPHILS % (AUTO) 70 % (42-75); PLATELET COUNT 196 x10^3/uL (130-400); RED BLOOD COUNT 6.65 x10^6/uL (4.38-5.82); RED CELL DISTRIBUTION WIDTH 16.9 % (9.4-14.8)
[2020-06-17] MEDS: CARVEDILOL 25 MG TABLET PO SCH (05:50)
[2020-06-17] MEDS: HEPARIN 5,000 UNITS/ML, 1ML SQ SCH ×2 (05:51→13:30)
[2020-06-17 06:19] LABS: MD SCAN
[2020-06-17] MEDS ORDERED: niFEDipine ER 30 MG TABLET.ER PO SCH (09:00)
[2020-06-17] MEDS: LISINOPRIL 20 MG TABLET PO SCH (09:33)
[2020-06-17] MEDS: SENNA/DOCUSATE TABLET PO SCH (09:34)
[2020-06-17] MEDS: SODIUM CHLORIDE FLUSH 10ML SYR IVF SCH (09:34)
[2020-06-17] MEDS ORDERED: NIFE30TA13 PO (10:10)
[2020-06-17] MEDS ORDERED: HYDR-3343 PO (13:36)
== END 2020-06-17 17:51 | disposition home or self-care (01) | DRG 206 ==
LOC: SUATTDRO 16:32 → ED 17:06 → EDIP 18:48 → 3N 19:22
PROVIDERS: ADMIT Internal Medicine; ATTEND Internal Medicine
DX: E66.2 Morbid (severe) obesity with alveolar hypoventilation (principal); I50.42 Chronic combined systolic (congestive) and diastolic (congestive) heart failure; Z68.41 Body mass index [BMI] 40.0-44.9, adult; D75.1 Secondary polycythemia; Z20.822 Contact with and (suspected) exposure to COVID-19; E78.5 Hyperlipidemia, unspecified; I08.0 Rheumatic disorders of both mitral and aortic valves; I11.0 Hypertensive heart disease with heart failure; R09.02 Hypoxemia; Z87.442 Personal history of urinary calculi; Z90.49 Acquired absence of other specified parts of digestive tract
CPT/HCPCS: 36415; 71045; 71260; 80048; 82040; 83880; 84484; 85025; 85379; 85610; 85730; 93005; 93306; 99285; G0378; J1644; Q9967; U0003